=== PATIENT | male | born 1945 | race Caucasian/White ===

== ENCOUNTER 2020-10-23 14:03 | Inpatient (IN) | payer MEDICARE, MEDICAID ==
[2020-10-23 14:56] LABS: #Basophils 0.1 thou/uL (0.0-0.2); #Lymphocytes 1.1 thou/uL (1.20-3.40); #Monocytes 1.7 thou/uL (0.11-0.59); #Neutrophils 16.8 thou/uL (1.40-6.50); %Basophils 0.7 % (0.0-1.0); %Eosinophils 0.1 % (0.0-10.0); %Lymphocytes 5.5 % (21.0-51.0); %Monocytes 8.6 % (0.0-10.0); %Neutrophils 85.1 % (42.0-75.0); Hemoglobin 12.4 g/dL (14.0-18.0); Mean Corpuscular HGB CONC 31.2 g/dL (32.0-36.0); Mean Corpuscular Hemoglobin 28.7 pg (27.0-31.0); Mean Corpuscular Volume 91.8 fL (78.0-98.0); Mean Platelet Volume 7.8 fL (7.4-10.4); Platelet Count 293 thou/uL (130-400); RBC Distribution Width 13.3 % (11.5-14.5); Red Blood Cell (RBC) Count 4.32 mill/uL (4.70-6.10); White Blood Cell (WBC) Count 19.7 thou/uL (4.8-10.8)
[2020-10-23 15:08] LABS: Anion Gap 16 mmol/L (10-20); BUN (Urea Nitrogen) 24 mg/dL (8.4-25.7); Calc. Creatinine Clearance 0 mL/min (70-130); Calcium 9.8 mg/dL (7.8-10.44); Carbon Dioxide 22 mmol/L (23-31); Chloride 102 mmol/L (98-107); Glucose 136 mg/dL (83-110); Potassium 4.1 mmol/L (3.5-5.1); Sodium 136 mmol/L (136-145)
[2020-10-23] MEDS ORDERED: Sodium Chloride 0.9% 100 ML ONE ×2 (15:26→17:13)
[2020-10-23] MEDS ORDERED: cefTRIAXone\\ROCEPHIN 2 GM VIAL ONE (15:26)
[2020-10-23 15:45] LABS: Bilirubin Negative (Negative); Blood, Urine Trace (Negative); Clarity Slightly Cloudy (Clear); Glucose, Urine (Dipstick) Negative (Negative); Ketone, Urine Trace mg/dL (Negative); Leukocyte Moderate (Negative); Nitrite Negative (Negative); Protein, Urine (Dipstick) 30 mg/dL (Neg-Trace); Urobilinogen 0.2 mg/dL (Less than 2)
[2020-10-23 15:59] LABS: Bacteria/HPF 3+ HPF (None Seen); RBC/HPF 0-3 HPF (0-3); Squamous Epithelial None Seen HPF (0-3); WBC/HPF Greater Than 50 HPF (0-3)
[2020-10-23] MEDS ORDERED: Sodium Chloride 0.9% 250 ML 250 ML ONE (15:59)
[2020-10-23] MEDS ORDERED: Piperacillin/Tazobactam 2.25 GM VIAL ONE (17:12)
[2020-10-23] MEDS ORDERED: Guaifenesin DM 100-10/5 ML UDCUP PO PRN (18:11)
[2020-10-23] MEDS ORDERED: Ondansetron ODT 4 MG TAB PO PRN ×2 (18:11→18:17)
[2020-10-23] MEDS: Acetaminophen 325 MG TAB PO PRN (20:43)
[2020-10-23] MEDS: Famotidine 20 MG TAB PO SCH (21:32)
[2020-10-23] MEDS: Heparin 5,000 UNITS/ML VIAL SC SCH (21:35)
[2020-10-23 21:49] VITALS: BMI 28.6
[2020-10-24] MEDS: Acetaminophen 325 MG TAB PO PRN ×2 (02:17→19:17)
[2020-10-24 06:09] LABS: Anion Gap 13 mmol/L (10-20); BUN (Urea Nitrogen) 24 mg/dL (8.4-25.7); Calc. Creatinine Clearance 42 mL/min (70-130); Calcium 9.1 mg/dL (7.8-10.44); Carbon Dioxide 21 mmol/L (23-31); Chloride 106 mmol/L (98-107); Glucose 119 mg/dL (83-110); Sodium 136 mmol/L (136-145)
[2020-10-24 06:13] LABS: Hemoglobin 10.2 g/dL (14.0-18.0); Mean Corpuscular HGB CONC 31.4 g/dL (32.0-36.0); Mean Corpuscular Hemoglobin 28.8 pg (27.0-31.0); Mean Corpuscular Volume 91.5 fL (78.0-98.0); Mean Platelet Volume 7.3 fL (7.4-10.4); Platelet Count 232 thou/uL (130-400); Red Blood Cell (RBC) Count 3.53 mill/uL (4.70-6.10)
[2020-10-24 06:23] LABS: Anisocytosis SLIGHT = 6-15 cells (100X) (0-5/hpf); Band 5 % (5-11); Eosinophils 2 % (0-10); Lymphocytes 6 % (21-51); MDiff Complete? YES; Manual Diff?? YES; Monocytes 10 % (0-10); Neutrophil 77 % (42-75); Platelet Morphology Comment Appears Adequate
[2020-10-24] MEDS ORDERED: Enoxaparin Sodium 40 MG/0.4 ML SYRINGE SC SCH (09:00)
[2020-10-24] MEDS ORDERED: Famotidine 20 MG TAB PO SCH (09:00)
[2020-10-24] MEDS: Amlodipine 5 MG TAB PO SCH (09:47)
[2020-10-24] MEDS: Ascorbic Acid 500 mg Chewable Tablet PO SCH (09:48)
[2020-10-24] MEDS: Cholecalciferol (Vitamin D3) 5,000 UNITS CAPSULE PO SCH (09:49)
[2020-10-24] MEDS: Aspirin 81 mg Enteric Coated Tablet PO SCH (09:49)
[2020-10-24] MEDS: Zinc Sulfate 220 MG CAP PO SCH (09:49)
[2020-10-24] MEDS: Heparin 5,000 UNITS/ML VIAL SC SCH ×3 (09:57→20:23)
[2020-10-24] MEDS: Azithromycin 500 MG in Sodium Chloride 0.9% 250 ML 250 ML IVPB SCH (15:53)
[2020-10-24] MEDS ORDERED: cefTRIAXone\\ROCEPHIN 1 GM in Sodium Chloride 0.9% 100 ML IVPB SCH (16:00)
[2020-10-24] MEDS: cefTRIAXone\\ROCEPHIN 1 GM in Sodium Chloride 0.9% 100 ML IVPB SCH (17:18)
[2020-10-24] MEDS: Famotidine 20 MG TAB PO SCH (20:23)
[2020-10-25 05:35] LABS: #Basophils 0.1 thou/uL (0.0-0.2); #Eosinphils 0.8 thou/uL (0.0-0.7); #Lymphocytes 1.3 thou/uL (1.20-3.40); #Monocytes 0.8 thou/uL (0.11-0.59); #Neutrophils 6.9 thou/uL (1.40-6.50); %Basophils 1.2 % (0.0-1.0); %Eosinophils 8.1 % (0.0-10.0); %Lymphocytes 13.6 % (21.0-51.0); %Monocytes 7.8 % (0.0-10.0); %Neutrophils 69.4 % (42.0-75.0); Hemoglobin 11.1 g/dL (14.0-18.0); Mean Corpuscular HGB CONC 30.7 g/dL (32.0-36.0); Mean Corpuscular Hemoglobin 28.3 pg (27.0-31.0); Mean Corpuscular Volume 92.1 fL (78.0-98.0); Mean Platelet Volume 6.9 fL (7.4-10.4); Platelet Count 242 thou/uL (130-400); RBC Distribution Width 13.1 % (11.5-14.5); Red Blood Cell (RBC) Count 3.94 mill/uL (4.70-6.10); White Blood Cell (WBC) Count 9.9 thou/uL (4.8-10.8)
[2020-10-25 05:51] LABS: Anion Gap 16 mmol/L (10-20); BUN (Urea Nitrogen) 25 mg/dL (8.4-25.7); Calc. Creatinine Clearance 41 mL/min (70-130); Calcium 8.1 mg/dL (7.8-10.44); Carbon Dioxide 22 mmol/L (23-31); Chloride 105 mmol/L (98-107); Glucose 113 mg/dL (83-110); Potassium 5.4 mmol/L (3.5-5.1); Sodium 138 mmol/L (136-145)
[2020-10-25] MEDS: Heparin 5,000 UNITS/ML VIAL SC SCH ×3 (08:42→20:42)
[2020-10-25] MEDS: Cholecalciferol (Vitamin D3) 5,000 UNITS CAPSULE PO SCH (08:43)
[2020-10-25] MEDS: Amlodipine 5 MG TAB PO SCH (08:43)
[2020-10-25] MEDS: Zinc Sulfate 220 MG CAP PO SCH (08:43)
[2020-10-25] MEDS: Ascorbic Acid 500 mg Chewable Tablet PO SCH (08:44)
[2020-10-25] MEDS: Aspirin 81 mg Enteric Coated Tablet PO SCH (08:44)
[2020-10-25] MEDS: Azithromycin 500 MG in Sodium Chloride 0.9% 250 ML 250 ML IVPB SCH (15:08)
[2020-10-25] MEDS: cefTRIAXone\\ROCEPHIN 1 GM in Sodium Chloride 0.9% 100 ML IVPB SCH (17:12)
[2020-10-25] MEDS: Famotidine 20 MG TAB PO SCH (20:41)
[2020-10-26 05:22] LABS: #Basophils 0.1 thou/uL (0.0-0.2); #Eosinphils 1.1 thou/uL (0.0-0.7); #Lymphocytes 1.9 thou/uL (1.20-3.40); #Monocytes 0.9 thou/uL (0.11-0.59); #Neutrophils 2.9 thou/uL (1.40-6.50); %Basophils 1.2 % (0.0-1.0); %Eosinophils 16.2 % (0.0-10.0); %Lymphocytes 27.9 % (21.0-51.0); %Monocytes 12.4 % (0.0-10.0); %Neutrophils 42.3 % (42.0-75.0); Hemoglobin 10.6 g/dL (14.0-18.0); Mean Corpuscular HGB CONC 31.6 g/dL (32.0-36.0); Mean Corpuscular Hemoglobin 28.9 pg (27.0-31.0); Mean Corpuscular Volume 91.4 fL (78.0-98.0); Platelet Count 283 thou/uL (130-400); RBC Distribution Width 13.5 % (11.5-14.5); Red Blood Cell (RBC) Count 3.68 mill/uL (4.70-6.10); White Blood Cell (WBC) Count 6.9 thou/uL (4.8-10.8)
[2020-10-26 05:37] LABS: Anion Gap 13 mmol/L (10-20)
[2020-10-26 05:44] LABS: BUN (Urea Nitrogen) 28 mg/dL (8.4-25.7); Calc. Creatinine Clearance 43 mL/min (70-130); Calcium 9.6 mg/dL (7.8-10.44); Carbon Dioxide 23 mmol/L (23-31); Chloride 107 mmol/L (98-107); Glucose 108 mg/dL (83-110); Potassium 4.2 mmol/L (3.5-5.1); Sodium 139 mmol/L (136-145)
[2020-10-26] MEDS: Aspirin 81 mg Enteric Coated Tablet PO SCH (09:09)
[2020-10-26] MEDS: Amlodipine 5 MG TAB PO SCH (09:09)
[2020-10-26] MEDS: Zinc Sulfate 220 MG CAP PO SCH (09:09)
[2020-10-26] MEDS: Heparin 5,000 UNITS/ML VIAL SC SCH ×3 (09:09→20:17)
[2020-10-26] MEDS: Ascorbic Acid 500 mg Chewable Tablet PO SCH (09:09)
[2020-10-26] MEDS: Cholecalciferol (Vitamin D3) 5,000 UNITS CAPSULE PO SCH (09:09)
[2020-10-26] MEDS: Azithromycin 500 MG in Sodium Chloride 0.9% 250 ML 250 ML IVPB SCH (15:13)
[2020-10-26] MEDS: cefTRIAXone\\ROCEPHIN 1 GM in Sodium Chloride 0.9% 100 ML IVPB SCH (16:51)
[2020-10-26] MEDS: Famotidine 20 MG TAB PO SCH (20:16)
[2020-10-27 05:29] LABS: #Basophils 0.1 thou/uL (0.0-0.2); #Eosinphils 1.4 thou/uL (0.0-0.7); #Lymphocytes 2.2 thou/uL (1.20-3.40); #Monocytes 0.9 thou/uL (0.11-0.59); #Neutrophils 2.9 thou/uL (1.40-6.50); %Basophils 1.9 % (0.0-1.0); %Eosinophils 18.6 % (0.0-10.0); %Lymphocytes 28.9 % (21.0-51.0); %Neutrophils 38.7 % (42.0-75.0); Mean Corpuscular HGB CONC 31.1 g/dL (32.0-36.0); Mean Corpuscular Hemoglobin 28.6 pg (27.0-31.0); Mean Corpuscular Volume 91.7 fL (78.0-98.0); Mean Platelet Volume 6.4 fL (7.4-10.4); Platelet Count 318 thou/uL (130-400); RBC Distribution Width 13.1 % (11.5-14.5); White Blood Cell (WBC) Count 7.6 thou/uL (4.8-10.8)
[2020-10-27 05:44] LABS: Anion Gap 11 mmol/L (10-20); BUN (Urea Nitrogen) 27 mg/dL (8.4-25.7); Calc. Creatinine Clearance 50 mL/min (70-130); Calcium 9.4 mg/dL (7.8-10.44); Carbon Dioxide 24 mmol/L (23-31); Chloride 109 mmol/L (98-107); Glucose 110 mg/dL (83-110); Potassium 3.8 mmol/L (3.5-5.1); Sodium 140 mmol/L (136-145)
[2020-10-27] MEDS: Amlodipine 5 MG TAB PO SCH (09:13)
[2020-10-27] MEDS: Cholecalciferol (Vitamin D3) 5,000 UNITS CAPSULE PO SCH (09:13)
[2020-10-27] MEDS: Aspirin 81 mg Enteric Coated Tablet PO SCH (09:13)
[2020-10-27] MEDS: Ascorbic Acid 500 mg Chewable Tablet PO SCH (09:13)
[2020-10-27] MEDS: Heparin 5,000 UNITS/ML VIAL SC SCH ×3 (09:14→21:02)
[2020-10-27] MEDS: Zinc Sulfate 220 MG CAP PO SCH (09:14)
[2020-10-27] MEDS: Azithromycin 500 MG in Sodium Chloride 0.9% 250 ML 250 ML IVPB SCH (15:32)
[2020-10-27] MEDS: cefTRIAXone\\ROCEPHIN 1 GM in Sodium Chloride 0.9% 100 ML IVPB SCH (17:06)
[2020-10-27] MEDS: Famotidine 20 MG TAB PO SCH (21:02)
[2020-10-28] MEDS: Cholecalciferol (Vitamin D3) 5,000 UNITS CAPSULE PO SCH (09:23)
[2020-10-28] MEDS: Ascorbic Acid 500 mg Chewable Tablet PO SCH (09:23)
[2020-10-28] MEDS: Aspirin 81 mg Enteric Coated Tablet PO SCH (09:23)
[2020-10-28] MEDS: Amlodipine 5 MG TAB PO SCH (09:23)
[2020-10-28] MEDS: Heparin 5,000 UNITS/ML VIAL SC SCH (09:23)
[2020-10-28] MEDS: Zinc Sulfate 220 MG CAP PO SCH (09:23)
[2020-10-28] MEDS ORDERED: cefTRIAXone\\ROCEPHIN 1 GM in Sodium Chloride 0.9% 100 ML IVPB SCH ×2 (12:00→13:00)
[2020-10-28] MEDS ORDERED: Azithromycin 500 MG in Sodium Chloride 0.9% 250 ML 250 ML IVPB SCH (12:00)
[2020-10-28 15:09] VITALS: BP 160/63; TEMP 97.9
== END 2020-10-28 14:59 | DRG 689 ==
LOC: MADERS 14:03 → MADMS 16:12 → INTOOBSV 16:12 → OBSVTOIN 16:12
PROVIDERS: ADMIT Family Medicine; ATTEND Family Medicine
DX: N30.00 Acute cystitis without hematuria (principal); J18.9 Pneumonia, unspecified organism; N18.30 Chronic kidney disease, stage 3 unspecified; I12.9 Hypertensive chronic kidney disease with stage 1 through stage 4 chronic kidney disease, or unspecified chronic kidney disease; E11.22 Type 2 diabetes mellitus with diabetic chronic kidney disease; E87.5 Hyperkalemia; M25.551 Pain in right hip; M25.561 Pain in right knee; R13.10 Dysphagia, unspecified; R26.89 Other abnormalities of gait and mobility; F03.90 Unspecified dementia, unspecified severity, without behavioral disturbance, psychotic disturbance, mood disturbance, and anxiety; K08.9 Disorder of teeth and supporting structures, unspecified; K00.0 Anodontia; Z79.899 Other long term (current) drug therapy; Z79.82 Long term (current) use of aspirin; Z87.891 Personal history of nicotine dependence
CPT/HCPCS: 36415; 71045; 73521; 80048; 81003; 81015; 85025; 87040; 96365; 96367; 96368; 96375; 96376; G0378; J0456; J0696; J1644; J1956; J2543; J3370; J3490; J7050

== ENCOUNTER 2021-07-13 13:06 | Outpatient (CLI) | payer MEDICARE, MEDICAID ==
[2021-07-13 13:22] LABS: Bilirubin Negative (Negative); Blood, Urine Negative (Negative); Clarity Clear (Clear); Glucose, Urine (Dipstick) Negative (Negative); Ketone, Urine Negative (Negative); Leukocyte Negative (Negative); Nitrite Negative (Negative); Protein, Urine (Dipstick) Negative (Neg-Trace); Urobilinogen 0.2 mg/dL (Less than 2)
[2021-07-13 13:28] LABS: RBC/HPF 0-3 HPF (0-3); Squamous Epithelial 0-3 HPF (0-3); WBC/HPF 0-3 HPF (0-3)
[2021-07-13 13:29] LABS: Bacteria/HPF None Seen HPF (None Seen)
== END 2021-07-13 13:07 | disposition home or self-care (01) ==
LOC: MADLAB 13:06
PROVIDERS: ATTEND Family Medicine
DX: E87.1 Hypo-osmolality and hyponatremia (principal)
CPT/HCPCS: 81001